=== PATIENT | male | born 1955 | race Asian ===

== ENCOUNTER 2019-05-24 18:34 | Emergency (ER) | payer BC, OTHER ==
[~2019-05-24] VITALS: Ht 165.1 cm; Wt 72.6 kg
--- NOTE | 2019-05-24 18:34 | NUR ---
Patient to ER bed 5[] to gown for evaluation. Side rails up.
[2019-05-24 18:35] VITALS: BP_SYST 116
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
--- NOTE | 2019-05-24 18:41 | NUR ---
Patient placed on lunchroom monitor and pulse-ox. Glucose 96, Dr. Solares made aware
--- NOTE | 2019-05-24 19:16 | NUR ---
Report given to Ayan SERNA
--- NOTE | 2019-05-24 20:00 | NUR ---
VSS no s/s of acute distress. Resting on gurney rails up
[2019-05-24 20:16] LABS: BASOPHILS % (AUTO) 0.3 % (0.0-2.0); EOSINOPHILS # (AUTO) 0.1 K/uL (0.0-0.4); HEMATOCRIT 47.1 % (36-54); HEMOGLOBIN 15.8 g/dL (14.0-18.0); LYMPHOCYTES # (AUTO) 0.7 K/uL (1.0-5.5); LYMPHOCYTES % (AUTO) 5.7 % (20.5-51.5); MEAN CORPUSCULAR HEMOGLOBIN 30 pg (27-31); MEAN CORPUSCULAR HGB CONC 34 % (32-36); MEAN CORPUSCULAR VOLUME 91 fL (79.0-98.0); MONOCYTES # (AUTO) 0.7 K/uL (0.0-1.0); MONOCYTES % (AUTO) 5.2 % (1.7-9.3); NEUTROPHILS # (AUTO) 11.3 K/uL (1.8-7.7); NEUTROPHILS % (AUTO) 87.8 % (40.0-70.0); PLATELET COUNT (AUTO) 227 K/uL (130-430); RED CELL DISTRIBUTION WIDTH 13.3 % (9.0-15.0); WHITE BLOOD COUNT (AUTO) 12.9 K/uL (4.8-10.8)
[2019-05-24 20:22] LABS: CALCIUM 9.2 mg/dL (8.4-11.0); CREATININE 1.12 mg/dL (0.55-1.30); POTASSIUM 3.1 mmol/L (3.5-5.1)
[2019-05-24 20:29] LABS: ALBUMIN 4.1 g/dL (3.4-4.8); TOTAL BILIRUBIN 0.5 mg/dL (0.0-1.0)
--- NOTE | 2019-05-24 20:44 | NUR ---
ER at bedside examining patient.
[2019-05-24] MEDS ORDERED: POTASSIUM CHLORIDE 20 MEQ TAB.PRT.SR PO ONE (21:00)
[2019-05-24 21:15] VITALS: BP_SYST 132
--- NOTE | 2019-05-24 21:15 | NUR ---
Patient given written and verbal discharge instructions and verbalizes understanding. ER MD discussed with patient the results and treatment provided. Patient in stable condition. ID arm band removed. Rx of given. Patient educated on pain management and to follow up with PMD. Pain Scale 0/10 Opportunity for questions provided and answered.
== END 2019-05-24 21:15 | disposition home or self-care (01) ==
LOC: SED 18:34
DX: E86.0 Dehydration (principal); E87.6 Hypokalemia; I10 Essential (primary) hypertension
CPT/HCPCS: 36415; 80053; 85025; 99283